=== PATIENT | female | born 1990 | race American Indian/Alaskan Native ===

== ENCOUNTER 2020-07-23 20:05 | Emergency (ER) | payer OTHER ==
[2020-07-23 21:47] LABS: Hematocrit 34.7 % (30.3-42.9); Hemoglobin 10.6 gm/dl (10.1-14.3); Mean Corpuscular HGB Conc 30 % (30-34); Mean Corpuscular Volume 75 fl (79-97); Platelet Count 381 K/mm3 (140-440); Red Blood Count 4.64 M/mm3 (3.65-5.03); Red Cell Distribution Width 14.8 % (13.2-15.2)
[2020-07-23 21:54] LABS: Bacteria,Urine 1+ /HPF (Negative); Bilirubin,Urine NEG (Negative); Blood,Urine NEG (Negative); Color,Urine Yellow (Yellow); Mucus,Urine 2+ /HPF
[2020-07-23 22:03] LABS: Alanine Aminotransferase 15 units/L (7-56); Albumin 4.9 g/dL (3.9-5); Blood Urea Nitrogen 10 mg/dL (7-17); Calcium 9.4 mg/dL (8.4-10.2); Hemolysis Index 98
[2020-07-23 22:11] LABS: BUN/Creatinine Ratio 14
[2020-07-23 23:05] LABS: Anisocytosis Few; Hypochromasia Few; Total Cells Counted 100
[2020-07-23] MEDS ORDERED: MORPHINE 4 MG/1 ML INJ IV ONE (23:59)
[2020-07-24] MEDS ORDERED: ONDANSETRON 4 MG/2 ML INJ IV ONE (00:01)
--- NOTE | 2020-07-24 00:24 | Emergency Department Report ---
ED General Adult HPI - General Chief complaint: Abdominal Pain Stated complaint: SURG 5/7 VSG, CHEST PAIN WHEN EAT OR DRINK Time Seen by Provider: 07/23/20 23:35 Source: patient Mode of arrival: Ambulatory Limitations: No Limitations - History of Present Illness Initial comments: Patient is a 30-year-old female who presents with abdominal pain nausea and vomiting has been going on for last 2 days. Patient says on July 05 that she had a gastric sleeve surgery done in [place]. She states she try to contact the surgeon for her when her pain was getting worse but did not reach out to her so she decided come to the ED. Patient's pain is moderate is an 8 out of 10 she states that when she eats food she regurgitates it but does not vomit. Patient denies having any blood in the vomit Severity scale (0 -10): 3 - Related Data Previous Rx's Medication Instructions Recorded Last Taken Type Promethazine [Phenergan] 25 mg PO Q6HR PRN #20 tab 07/24/20 Unknown Rx Allergies Allergy/AdvReac Type Severity Reaction Status Date / Time No Known Allergies Allergy Verified 07/23/20 23:24 ED Review of Systems ROS: Stated complaint: SURG 5/7 VSG, CHEST PAIN WHEN EAT OR DRINK Other details as noted in HPI Constitutional: denies: chills, fever Eyes: denies: eye pain, eye discharge, vision change ENT: denies: ear pain, throat pain Respiratory: denies: cough, shortness of breath, wheezing Cardiovascular: denies: chest pain, palpitations Endocrine: no symptoms reported Gastrointestinal: abdominal pain, nausea. denies: diarrhea Genitourinary: denies: urgency, dysuria, discharge Musculoskeletal: denies: back pain, joint swelling, arthralgia Skin: denies: rash, lesions Neurological: denies: headache, weakness, paresthesias Psychiatric: denies: anxiety, depression Hematological/Lymphatic: denies: easy bleeding, easy bruising ED Past Medical Hx - Past Medical History Previous Medical History?: No - Social History Smoking Status: Never Smoker Substance Use Type: None - Medications Home Medications: Home Medications Medication Instructions Recorded Confirmed Last Taken Type Promethazine [Phenergan] 25 mg PO Q6HR PRN #20 tab 07/24/20 Unknown Rx ED Physical Exam - General Limitations: No Limitations General appearance: alert, in no apparent distress - Head Head exam: Present: atraumatic, normocephalic - Eye Eye exam: Present: normal appearance - ENT ENT exam: Present: mucous membranes moist - Neck Neck exam: Present: normal inspection - Respiratory Respiratory exam: Present: normal lung sounds bilaterally. Absent: respiratory distress - Cardiovascular Cardiovascular Exam: Present: regular rate, normal rhythm. Absent: systolic murmur, diastolic murmur, rubs, gallop - GI/Abdominal GI/Abdominal exam: Present: soft, normal bowel sounds - Extremities Exam Extremities exam: Present: normal inspection - Back Exam Back exam: Present: normal inspection - Neurological Exam Neurological exam: Present: alert, oriented X3 - Psychiatric Psychiatric exam: Present: normal affect, normal mood - Skin Skin exam: Present: warm, dry, intact, normal color. Absent: rash ED Course Vital Signs 07/23/20 07/23/20 07/23/20 21:06 23:20 23:31 Temperature 98.7 F 97.7 F Pulse Rate 80 68 70 Respiratory 18 18 17 Rate Blood Pressure 114/72 105/65 Blood Pressure 106/66 [Left] O2 Sat by Pulse 100 100 99 Oximetry 07/23/20 07/24/20 07/24/20 23:45 00:01 00:15 Temperature Pulse Rate 70 90 62 Respiratory 15 Rate Blood Pressure 109/61 100/55 100/55 Blood Pressure [Left] O2 Sat by Pulse 100 100 100 Oximetry 07/24/20 07/24/20 07/24/20 00:18 00:31 00:45 Temperature Pulse Rate 68 74 Respiratory 18 Rate Blood Pressure 109/61 115/64 Blood Pressure [Left] O2 Sat by Pulse 100 97 Oximetry 07/24/20 07/24/20 07/24/20 01:01 01:15 01:46 Temperature Pulse Rate 62 71 Respiratory 13 Rate Blood Pressure 107/57 122/73 122/73 Blood Pressure [Left] O2 Sat by Pulse 99 99 100 Oximetry - Reevaluation(s) Reevaluation #1: 07/24/20 02:56 Patient is feeling better I will discharge patient home ED Medical Decision Making - Lab Data Result diagrams: 07/23/20 21:26 07/23/20 21:26 Lab Results 07/23/20 07/23/20 07/23/20 Range/Units 21:17 21:26 21:26 WBC 8.6 (4.5-11.0) K/mm3 RBC 4.64 (3.65-5.03) M/mm3 Hgb 10.6 (10.1-14.3) gm/dl Hct 34.7 (30.3-42.9) % MCV 75 L (79-97) fl MCH 23 L (28-32) pg MCHC 30 (30-34) % RDW 14.8 (13.2-15.2) % Plt Count 381 (140-440) K/mm3 Add Manual Diff Complete Total Counted 100 Seg Neuts % (Manual) 52.0 (40.0-70.0) % Lymphocytes % (Manual) 31.0 (13.4-35.0) % Monocytes % (Manual) 13.0 H (0.0-7.3) % Eosinophils % (Manual) 3.0 (0.0-4.3) % Basophils % (Manual) 1.0 (0.0-1.8) % Nucleated RBC % Not Reportable Seg Neutrophils # Man 4.5 (1.8-7.7) K/mm3 Band Neutrophils # 0.0 K/mm3 Lymphocytes # (Manual) 2.7 (1.2-5.4) K/mm3 Abs React Lymphs (Man) 0.0 K/mm3 Monocytes # (Manual) 1.1 H (0.0-0.8) K/mm3 Eosinophils # (Manual) 0.3 (0.0-0.4) K/mm3 Basophils # (Manual) 0.1 (0.0-0.1) K/mm3 Metamyelocytes # 0.0 K/mm3 Myelocytes # 0.0 K/mm3 Promyelocytes # 0.0 K/mm3 Blast Cells # 0.0 K/mm3 WBC Morphology Not Reportable Hypersegmented Neuts Not Reportable Hyposegmented Neuts Not Reportable Hypogranular Neuts Not Reportable Smudge Cells Not Reportable Toxic Granulation Not Reportable Toxic Vacuolation Not Reportable Dohle Bodies Not Reportable Pelger-Huet Anomaly Not Reportable Matt Rods Not Reportable Platelet Estimate Not Reportable Clumped Platelets Not Reportable Plt Clumps, EDTA Not Reportable Large Platelets Not Reportable Giant Platelets Not Reportable Platelet Satelliting Not Reportable Plt Morphology Comment Not Reportable RBC Morphology Not Reportable Dimorphic RBCs Not Reportable Polychromasia Not Reportable Hypochromasia Few Poikilocytosis Not Reportable Anisocytosis Few Microcytosis Few Macrocytosis Not Reportable Spherocytes Not Reportable Pappenheimer Bodies Not Reportable Sickle Cells Not Reportable Target Cells Not Reportable Tear Drop Cells Not Reportable Ovalocytes Not Reportable Helmet Cells Not Reportable Lorenzo-[place] Bodies Not Reportable [place] Rings Not Reportable Tasha Cells Not Reportable Bite Cells Not Reportable Crenated Cell Not Reportable Elliptocytes Not Reportable Acanthocytes (Spur) Not Reportable Rouleaux Not Reportable Hemoglobin C Crystals Not Reportable Schistocytes Not Reportable Malaria parasites Not Reportable Russ Bodies Not Reportable Hem Pathologist Commnt No Sodium 138 (137-145) mmol/L Potassium 4.7 (3.6-5.0) mmol/L Chloride 104.5 (98-107) mmol/L Carbon Dioxide 22 (22-30) mmol/L Anion Gap 16 mmol/L BUN 10 (7-17) mg/dL Creatinine 0.7 (0.6-1.2) mg/dL Estimated GFR > 60 ml/min BUN/Creatinine Ratio 14 % Glucose 96 (65-100) mg/dL Calcium 9.4 (8.4-10.2) mg/dL Total Bilirubin 0.30 (0.1-1.2) mg/dL AST 22 (5-40) units/L ALT 15 (7-56) units/L Alkaline Phosphatase 83 (35-129) units/L Total Protein 7.2 (6.3-8.2) g/dL Albumin 4.9 (3.9-5) g/dL Albumin/Globulin Ratio 2.1 % Lipase 83 H (13-60) units/L Urine Color Yellow (Yellow) Urine Turbidity Slightly-cloudy (Clear) Urine pH 5.0 (5.0-7.0) Ur Specific [place] 1.033 H (1.003-1.030) Urine Protein 30 mg/dl (Negative) mg/dL Urine Glucose (UA) Neg (Negative) mg/dL Urine Ketones Tr (Negative) mg/dL Urine Blood Neg (Negative) Urine Nitrite Neg (Negative) Urine Bilirubin Neg (Negative) Urine Urobilinogen 2.0 (<2.0) mg/dL Ur Leukocyte Esterase Neg (Negative) Urine WBC (Auto) 2.0 (0.0-6.0) /HPF Urine RBC (Auto) 15.0 (0.0-6.0) /HPF U Epithel Cells (Auto) 16.0 H (0-13.0) /HPF Urine Bacteria (Auto) 1+ (Negative) /HPF Urine Mucus 2+ /HPF - Radiology Data Radiology results: report reviewed, image reviewed CT scan shows no obstruction in the abdomen - Medical Decision Making CDX: Small bowel obstruction DDx: Ileus, short gut syndrome We will get CT scan with oral contrast IV pain medicine blood work CBC and I will give patient IV fluids. Patient is feeling better I will discharge patient home Critical care attestation.: If time is entered above; I have spent that time in minutes in the direct care of this critically ill patient, excluding procedure time. ED Disposition Clinical Impression: Epigastric abdominal pain Nausea and vomiting Qualifiers: Vomiting type: unspecified Vomiting Intractability: unspecified Qualified Code(s): R11.2 - Nausea with vomiting, unspecified Disposition: DC- TO HOME OR SELFCARE Is pt being admited?: No Does the pt Need Aspirin: No Condition: Stable Instructions: Abdominal Pain (ED), Nausea, Adult Prescriptions: Promethazine [Phenergan] 25 mg PO Q6HR PRN #20 tab PRN Reason: Nausea
--- NOTE | 2020-07-24 02:00 | Cat Scan Report ---
CT ABDOMEN AND PELVIS WITH CONTRAST INDICATION: Pt complains of epigastric abd pain after Gastric Sleeve placement 3 weeks ago CONTRAST: 100 cc Omnipaque 300 IV COMPARISON: None available. All CT scans at this location are performed using CT dose reduction for ALARA by means of automated e xposure control. FINDINGS: Lung bases are clear. No pneumoperitoneum is seen. No urinary obstructive changes are noted . Surgical changes are seen in the stomach without obvious extravasation, inflammation, or abnormal f luid collections in this area. A small hiatal hernia is seen. Medial aspect of the spleen shows an il l-defined 3.7 cm hypodensity which is nonspecific and has an irregular shape. This is not a simple cy st and appears to have blood flow through the central portion. No other visceral lesions are seen. Ga llbladder and bile ducts appear within normal limits. No evidence of bowel obstruction is seen. Appen jennifer appears within normal limits. No free fluid is seen. No adnexal masses are noted. No inflammatory changes are seen. No abscess is noted. Stranding in the subcutaneous tissues of the midline and left abdomen probably related to recent procedure. IMPRESSION: 1. No obvious surgical complication is seen. 2. Ill-defined hypodensity in the medial spleen as above. Possibly this could be a hemangioma. There is vascularity in the central portion which would be unusual if this was an infarction. Probably this is not significant but I would suggest follow-up. Signer Name: Micheal Bosch MD Signed: 07/24/2020 1:56 AM Workstation Name: [id number]
[2020-07-24] MEDS ORDERED: SODIUM CHLORIDE 0.9% 1000 ML 1,000 ML IV ONE (03:06)
[2020-07-24] MEDS ORDERED: SODIUM CHLORIDE 0.9% 1000 ML 1,000 ML ONE (03:06)
[2020-07-24 04:19] VITALS: BP 105/70
== END 2020-07-24 04:21 | disposition home or self-care (01) ==
LOC: ED 20:05
DX: R10.13 Epigastric pain (principal); R11.2 Nausea with vomiting, unspecified; Z79.899 Other long term (current) drug therapy
CPT/HCPCS: 36415; 74177; 80053; 81001; 83690; 84702; 85007; 85025; 96361; 96374; 96375; 99284; J2270; J2405; J7030; Q9967

== ENCOUNTER 2020-08-19 10:50 | Emergency (ER) | payer OTHER ==
[2020-08-19 11:51] VITALS: BP 95/49
[2020-08-19] MEDS ORDERED: SODIUM CHLORIDE 0.9% 1000 ML 1,000 ML IV ONE (12:33)
--- NOTE | 2020-08-19 12:39 | Event Note ---
ED Screening Note Date of service: 08/19/20 Time: 12:34 ED Screening Note: Patient presents to the ER today with complaints of dizziness (spinning sensation) and left leg cramping since this past . She states her symptoms started while she was at [employer]. She also reports headache and blurry vision which started today and she states that when she feels dizzy she gets short of breath. She denies any significant past medical history Last menstrual cycle was around July 16. She is late for this month menstrual cycle but she states that she is not concerned because she is not sexually active. This initial assessment/diagnostic orders/clinical plan/treatment(s) is/are subject to change based on patients health status, clinical progression and re- assessment by fellow clinical providers in the ED. Further treatment and workup at subsequent clinical providers discretion. Patient/guardian urged not to elope from the ED as their condition may be serious if not clinically assessed and managed. Initial orders include: Labs/cxr/ekg
--- NOTE | 2020-08-19 13:02 | Emergency Department Report ---
- General Chief complaint: Dizziness Stated complaint: DEHYDRATION SINCE WEDNESDAY Time Seen by Provider: 08/19/20 12:50 Source: patient Mode of arrival: Ambulatory Limitations: No Limitations - History of Present Illness Initial comments: Chief complaint: "I am dehydrated." HPI: This is a 30-year-old female who underwent vertical sleeve gastrectomy July 05 in [place]. She is concerned that she may have developed dehydration. On 4 days ago she had a full day at [facility]. She did drink water. The next day she craved salt. She developed muscle cramps in her left calf. She woke up this morning with now headache. She felt dizzy upon standing. She feels better with rest. She drank coconut water on yesterday. Patient had transient blurry vision upon standing in the shower. Vision normalized when she sat down and rested. Patient drove to the emergency department in her personal vehicle. MD Complaint: generalized weakness -: Gradual (3 days ago) Location: generalized Severity: moderate Consistency: constant Improves with: rest Worsens with: other (Standing) Associated Symptoms: other (Headache muscle cramps) - Related Data Previous Rx's Medication Instructions Recorded Last Taken Type Promethazine [Phenergan] 25 mg PO Q6HR PRN #20 tab 07/24/20 Unknown Rx Allergies Allergy/AdvReac Type Severity Reaction Status Date / Time No Known Allergies Allergy Verified 07/23/20 23:24 ED Review of Systems ROS: Stated complaint: DEHYDRATION SINCE WEDNESDAY Other details as noted in HPI Comment: All other systems reviewed and negative Constitutional: denies: fever, malaise Respiratory: denies: cough, shortness of breath Cardiovascular: denies: chest pain Gastrointestinal: denies: abdominal pain, nausea, vomiting Neurological: headache ED Past Medical Hx - Past Medical History Previous Medical History?: No - Surgical History Past Surgical History?: Yes Additional Surgical History: Gastric sleeve 07/05/2020 - Social History Smoking Status: Never Smoker Substance Use Type: None - Medications Home Medications: Home Medications Medication Instructions Recorded Confirmed Last Taken Type Promethazine [Phenergan] 25 mg PO Q6HR PRN #20 tab 07/24/20 Unknown Rx ED Physical Exam - General Limitations: No Limitations General appearance: alert, in no apparent distress, other (Steady normal gait from waiting area to treatment room, patient appears well, patient appears nontoxic) - Head Head exam: Present: atraumatic, normocephalic - Eye Eye exam: Present: normal appearance - ENT ENT exam: Present: mucous membranes moist - Neck Neck exam: Present: normal inspection, full ROM - Respiratory Respiratory exam: Present: normal lung sounds bilaterally. Absent: respiratory distress, wheezes, rales, rhonchi - Cardiovascular Cardiovascular Exam: Present: regular rate, normal rhythm, normal heart sounds. Absent: systolic murmur, diastolic murmur, rubs, gallop - GI/Abdominal GI/Abdominal exam: Present: soft, normal bowel sounds. Absent: distended, te nderness, guarding, rebound - Extremities Exam Extremities exam: Present: normal inspection - Back Exam Back exam: Present: normal inspection - Neurological Exam Neurological exam: Present: alert, oriented X3, CN II-XII intact, normal gait - Expanded Neurological Exam Expanded Patient oriented to: Present: person, place, time Speech: Present: fluid speech Cranial nerves: EOM's Intact: Normal Cerebellar function: Finger to Nose: Normal Sensory exam: Upper Extremity Light Touch: Normal Motor strength exam: RUE: 5, LUE: 5, RLE: 5, LLE: 5 Best Eye Response (Ash): (4) open spontaneously Best Motor Response (Ash): (6) obeys commands Best Verbal Response (Dania): (5) oriented Dania Total: 15 - Psychiatric Psychiatric exam: Present: normal affect, normal mood - Skin Skin exam: Present: warm, dry, intact, normal color. Absent: rash ED Course Vital Signs 08/19/20 11:49 Temperature 98.2 F Pulse Rate 86 Respiratory 13 Rate Blood Pressure 95/49 O2 Sat by Pulse 100 Oximetry ED Medical Decision Making - Lab Data Result diagrams: 08/19/20 12:52 08/19/20 12:52 - EKG Data -: EKG Interpreted by Me EKG shows normal: sinus rhythm, axis, intervals, QRS complexes, ST-T waves Rate: normal - EKG Data Interpretation: normal EKG 08/19/20 13:01 EKG obtained 1243 EKG interpreted by me Normal sinus rhythm normal rate normal axis normal intervals no ST elevation no ST-T signs of ischemia normal EKG - Medical Decision Making Dehydration: Recommended p.o. rehydration with sports drinks such as Gatorade Powerade. Also recommended rest. CBC chemistry within normal limits. Sodium 138 normal potassium 4.2 Critical care attestation.: If time is entered above; I have spent that time in minutes in the direct care of this critically ill patient, excluding procedure time. ED Disposition Clinical Impression: Dehydration Disposition: DC-01 TO HOME OR SELFCARE Is pt being admited?: No Does the pt Need Aspirin: No Instructions: Dehydration, Adult, [id number] Referrals: AMANDA ACUNA MD [Staff Physician] - 3-5 Days TRA MALAVE MD [Staff Physician] - 3-5 Days
[2020-08-19 13:36] LABS: Alanine Aminotransferase 19 units/L (7-56); Blood Urea Nitrogen 9 mg/dL (7-17); Calcium 9.9 mg/dL (8.4-10.2); Hemolysis Index 0
[2020-08-19 13:39] LABS: Basophils % (Auto) 0.5 % (0.0-1.8); Eosinophils # (Auto) 0.2 K/mm3 (0.0-0.4); Eosinophils % (Auto) 1.8 % (0.0-4.3); Lymphocytes # (Auto) 2.7 K/mm3 (1.2-5.4); Lymphocytes % (Auto) 28.7 % (13.4-35.0); Monocytes # (Auto) 0.6 K/mm3 (0.0-0.8); Monocytes % (Auto) 6.1 % (0.0-7.3)
[2020-08-19 13:51] LABS: BUN/Creatinine Ratio 13
[2020-08-19 14:02] LABS: Hematocrit 35.7 % (30.3-42.9); Mean Corpuscular HGB Conc 31 % (30-34); Mean Corpuscular Volume 74 fl (79-97); Platelet Count 318 K/mm3 (140-440); Red Blood Count 4.81 M/mm3 (3.65-5.03); Red Cell Distribution Width 14.1 % (13.2-15.2)
--- NOTE | 2020-08-21 19:10 | Electrocardiograph Report ---
[facility] Test Date: 2020-08-19 Test Time: 12:43:22 Pat Name: VITO HERNADEZ Department: Room: Gender: F Instrument Maker: KARINE : 1990 Requested By: TAE JOHNSON Order Number: [id number] Reading MD: Tamia Long Measurements Intervals [place] Rate: 66 P: 38 MO: 151 QRS: 56 QRSD: 72 T: 45 QT: 384 QTc: 403 Interpretive Statements Sinus rhythm Diffuse ST elevation, consider early repolarization versus pericarditis No previous ECG available for comparison Electronically Signed On 08-21-2020 19:09:44 EDT by Tamia Long
== END 2020-08-19 14:25 | disposition home or self-care (01) ==
LOC: ED 10:50
DX: E86.0 Dehydration (principal); Z98.890 Other specified postprocedural states; Z79.899 Other long term (current) drug therapy
CPT/HCPCS: 36415; 80053; 85025; 93005

== ENCOUNTER 2020-09-29 10:14 | Emergency (ER) | payer OTHER ==
[2020-09-29 11:05] VITALS: BP 105/67
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
== END 2020-09-29 12:38 | disposition home or self-care (01) ==
LOC: ED 10:14
DX: M79.81 Nontraumatic hematoma of soft tissue (principal); F10.20 Alcohol dependence, uncomplicated; Z79.1 Long term (current) use of non-steroidal anti-inflammatories (NSAID); V43.52XA Car driver injured in collision with other type car in traffic accident, initial encounter; Y93.89 Activity, other specified; Y92.89 Other specified places as the place of occurrence of the external cause; Y99.8 Other external cause status
CPT/HCPCS: 99283